=== PATIENT | female | born 1990 | race Caucasian/White ===

== ENCOUNTER 2016-09-12 12:49 | Emergency (ER) | payer OTHER ==
[~2016-09-12] VITALS: Ht 167.6 cm; Wt 63.5 kg
[2016-09-12 12:51] VITALS: BP 120/66
[2016-09-12 16:05] LABS: Hepatitis B Surface Antibody Positive
== END 2016-09-12 14:26 | disposition home or self-care (01) ==
LOC: ER 12:52
DX: H11.433 Conjunctival hyperemia, bilateral (principal); Z77.21 Contact with and (suspected) exposure to potentially hazardous body fluids; X58.XXXA Exposure to other specified factors, initial encounter; Y93.89 Activity, other specified; Y99.0 Civilian activity done for income or pay; Y92.69 Other specified industrial and construction area as the place of occurrence of the external cause
CPT/HCPCS: 36415; 86703; 86706; 86803; 87340